=== PATIENT | female | born 1940 | race Caucasian/White ===

== ENCOUNTER 2017-05-01 05:51 | Emergency (ER) | payer MEDICARE, OTHER ==
[~2017-05-01 05:51] MED LIST: CARB15DR OU; EZET10TA26 PO; LATA2.5D2 OU; LEVO125T11 PO
[2017-05-01 08:53] LABS: BASOPHILS % (AUTO) 0.7 % (0.0-5.0); EOSINOPHILS % (AUTO) 2.1 % (0.0-8.0); HEMATOCRIT 41.8 % (36-48); LYMPHOCYTES % (AUTO) 22.5 % (21.0-51.0); MEAN CORPUSCULAR HEMOGLOBIN 34.3 pg (27.0-33.0); MEAN CORPUSCULAR HGB CONC 34.3 g/dL (32.0-36.0); MONOCYTES % (AUTO) 10.8 % (3.0-13.0); NEUTROPHILS % (AUTO) 63.9 % (40.0-77.0); PLATELET COUNT (AUTO) 227 K/uL (130-400); RED BLOOD CELL COUNT(AUTO) 4.18 MIL/uL (4.00-5.50); RED CELL DISTRIBUTION WIDTH 11.8 % (11.0-15.5); WHITE BLOOD COUNT (AUTO) 7.1 K/uL (4.8-10.8)
[2017-05-01 09:01] LABS: CREATININE 0.8 mg/dL (0.5-1.5); POTASSIUM 3.9 mmol/L (3.5-5.1)
[2017-05-01 09:06] LABS: BILIRUBIN,TOTAL 0.6 mg/dL (0.2-1.0); MAGNESIUM 1.9 mg/dL (1.80-2.40); TOTAL PROTEIN, SERUM 7.8 g/dL (6.0-8.3)
[2017-05-01 09:14] LABS: INR 0.95 (0.85-1.15); PARTIAL THROMBOPLASTIN TIME 26.6 SEC (26.3-35.5)
== END 2017-05-01 10:11 | disposition home or self-care (01) ==
LOC: EDH 05:51
DX: M79.604 Pain in right leg (principal); E78.5 Hyperlipidemia, unspecified; E07.9 Disorder of thyroid, unspecified; Z86.73 Personal history of transient ischemic attack (TIA), and cerebral infarction without residual deficits; Z90.49 Acquired absence of other specified parts of digestive tract; Z90.710 Acquired absence of both cervix and uterus; Z98.890 Other specified postprocedural states; Z88.6 Allergy status to analgesic agent; Z88.8 Allergy status to other drugs, medicaments and biological substances; Z87.891 Personal history of nicotine dependence
CPT/HCPCS: 36415; 73562; 80053; 83735; 85025; 85610; 85730; 93971